=== PATIENT | male | born 1970 | race Native Hawaiian/Other Pacific Islander ===

== ENCOUNTER 2018-02-17 05:54 | Emergency (ER) | payer MEDICAID ==
[2018-02-17] MEDS ORDERED: Tetanus/Diphtheria Toxoids 0.5 ml Syringe IM ONE ×2 (06:08→06:26)
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
[2018-02-17] MEDS ORDERED: Bacitracin 500 Units/gm Oint Foilpak UD TOP ONE (06:52)
[2018-02-17] MEDS ORDERED: Bacitracin 500 Units/gm Oint Foilpak UD ONE (07:00)
[2018-02-17 08:16] VITALS: BP 136/82; PULSE 86; RESP 18; TEMP 98; O2SAT 100
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
== END 2018-02-17 08:30 | disposition home or self-care (01) ==
LOC: C.ER 05:54
DX: S00.03XA Contusion of scalp, initial encounter (principal); S40.022A Contusion of left upper arm, initial encounter; S40.021A Contusion of right upper arm, initial encounter; Y08.89XA Assault by other specified means, initial encounter; Y92.410 Unspecified street and highway as the place of occurrence of the external cause; F10.10 Alcohol abuse, uncomplicated; Z23 Encounter for immunization